=== PATIENT | male | born 1980 | race Caucasian/White ===

== ENCOUNTER 2017-01-27 09:17 | Emergency (ER) | payer SELFPAY ==
[2017-01-27] MEDS ORDERED: IBUPROFEN 600 MG TABLET PO ONE (09:29)
--- NOTE | 2017-01-27 09:39 | Emergency Department Record ---
History of Present Illness - General Chief Complaint: Fever Stated Complaint: FEVER Time Seen by Provider: 01/27/17 09:29 Source: Patient Mode of Arrival: Ambulatory Limitations: No limitations - History of Present Illness Initial Comments: 37 yo male presents with 2 days of decreased energy, cough, nasal congestion and fevers. Mild sore throat. No nausea or vomiting but he has had decreased appetite. His immunization he believes are up to date. No rash. No neck pain. No diarrhea. No PCP. MD Complaint: Fever, Other (Cough and congestion) Onset/Timin -: Days(s) Maximum Temperature: 103 F Temperature Source: Oral Context: Sick contacts Associated Symptoms: Cough Treatments Prior to Arrival: None - Related Data Previous Rx's Medication Instructions Recorded Azithromycin [Zithromax] 250 mg PO DAILY #6 tab 01/27/17 Allergies Allergy/AdvReac Type Severity Reaction Status Date / Time No Known Drug Allergies Allergy Verified 01/27/17 09:28 Travel Screening - Travel/Exposure Within Last 30 Days Have you traveled within the last 30 days?: No Review of Systems Constitutional: Reports: Chills, Fever, Malaise Eyes: Denies: Eye discharge, Eye pain, Photophobia, Vision change ENT: Reports: Congestion. Denies: Dental pain, Ear pain, Throat pain Respiratory: Reports: Cough. Denies: Dyspnea, Hemoptysis, Stridor, Wheezes Cardiovascular: Denies: Chest pain, Dyspnea on exertion, Palpitations, Syncope Endocrine: Denies: Fatigue Gastrointestinal: Denies: Abdominal pain, Diarrhea, Hematemesis, Hematochezia, Nausea, Vomiting Genitourinary: Denies: Dysuria, Frequency, Hematuria Musculoskeletal: Reports: Arthralgia, Myalgia. Denies: Back pain, Gout, Joint swelling, Neck pain Skin: Denies: Bruising, Change in color, Rash Neurological: Reports: Headache (frontal at times.). Denies: Numbness, Tremors , Vertigo, Weakness Psychiatric: Denies: Anxiety Hematological/Lymphatic: Denies: Blood Clots, Easy bleeding, Easy bruising, Swollen glands Past Medical History - SOCIAL HISTORY Smoking Status: Never smoker Alcohol Use: None Drug Use: None - RESPIRATORY Hx Respiratory Disorders: No - CARDIOVASCULAR Hx Cardio Disorders: No - NEURO Hx Neuro Disorders: No - GI Hx GI Disorders: No - Hx Genitourinary Disorders: No - ENDOCRINE Hx Endocrine Disorders: No - MUSCULOSKELETAL Hx Musculoskeletal Disorders: No - PSYCH Hx Psych Problems: No - HEMATOLOGY/ONCOLOGY Hx Hematology/Oncology Disorders: No Family Medical History Any Significant Family History?: No Physical Exam - General General Appearance: Alert, Oriented x3, Cooperative, No acute distress, Other ( Appears comfortable in no distress, non labored) Limitations: No limitations - Head Head exam: Normal inspection - Eye Eye exam: Normal appearance, PERRL. negative: Conjunctival injection, Scleral icterus - ENT ENT exam: Mucous membranes moist, Normal orophraynx. negative: Normal exam, TM' s normal bilaterally (Right TM normal, Left is erythematous with a small bulla) Ear exam: Normal external inspection. negative: External canal tenderness Nasal Exam: Discharge (clear) Mouth exam: Normal external inspection, Tongue normal Teeth exam: Normal inspection. negative: Dental caries Throat exam: Normal inspection, Tonsillar erythema (mild). negative: Tonsillomegaly, Tonsillar exudate, R peritonsillar mass, L peritonsillar mass - Neck Neck exam: Normal inspection, Full ROM. negative: Lymphadenopathy, Meningismus (supple), Tenderness, Thyromegaly - Respiratory Respiratory exam: Normal lung sounds bilaterally. negative: Accessory muscle use, Decreased breath sounds, Respiratory distress, Rhonchi, Stridor, Wheezes - Cardiovascular Cardiovascular Exam: Regular rate, Normal rhythm, Normal heart sounds - GI/Abdominal GI/Abdominal exam: Soft. negative: Tenderness - Rectal Rectal exam: Deferred - exam: Deferred - Extremities Extremities exam: Normal inspection, Full ROM, Normal capillary refill. negative: Tenderness - Back Back exam: Reports: Normal inspection, Full ROM. Denies: Muscle spasm, Rash noted, Tenderness - Neurological Neurological exam: Alert, Normal gait, Oriented X3 - Psychiatric Psychiatric exam: Normal affect, Normal mood. negative: Agitated, Anxious - Skin Skin exam: Dry, Intact, Normal color, Warm Course Vital Signs 01/27/17 09:25 Temperature 101.7 F H Pulse Rate 107 H Respiratory 20 Rate Blood Pressure 121/75 Pulse Ox 94 L - Reevaluation(s) Reevaluation #1: The patient was seen and examined Motrin ordered Flu swab sent given he did not have a flu shot this year 01/27/17 09:38 Reevaluation #2: The influenza tests were negative Given his left OM he will be given a dose of antibiotics her e in the ED and for home as well 01/27/17 09:58 Disposition Disposition: Discharge Clinical Impression: Otitis media Qualifiers: Otitis media type: unspecified Laterality: left Chronicity: unspecified Qualified Code(s): H66.92 - Otitis media, unspecified, left ear Upper respiratory tract infection Qualifiers: URI type: unspecified URI Qualified Code(s): J06.9 - Acute upper respiratory infection, unspecified Disposition: Home, Self-Care Condition: (1) Good Instructions: Fever in Adults (ED), Otitis Media (ED), Upper Respiratory Infection (ED) Additional Instructions: Rest and stay well hydrated Return if worse, vomiting, short of breath or any other concerns. Prescriptions: Azithromycin [Zithromax] 250 mg PO DAILY #6 tab Forms: Patient Portal Access Time of Disposition: 10:00
[2017-01-27] MEDS ORDERED: IBUPROFEN 200 MG TABLET PO ONE (09:45)
[2017-01-27 09:52] LABS: INFLUENZA A NEGATIVE (NEGATIVE); INFLUENZA B NEGATIVE (NEGATIVE)
[2017-01-27] MEDS ORDERED: AZITHROMYCIN 500 MG TABLET PO ONE (09:58)
== END 2017-01-27 10:09 | disposition home or self-care (01) ==
LOC: ER 09:17
DX: H66.92 Otitis media, unspecified, left ear (principal); J06.9 Acute upper respiratory infection, unspecified
CPT/HCPCS: 87400; 99282